=== PATIENT | female | born 2000 | race Caucasian/White ===

== ENCOUNTER 2025-04-23 14:30 | Emergency (ER) | payer OTHER, SELFPAY ==
[2025-04-23 14:34] VITALS: BP 116/83; PULSE 97; RESP 18; TEMP 36.2; O2SAT 98; BMI 29.0
--- NOTE | 2025-04-23 15:05 | US_ITS ---
PROCEDURE: TRANSVAGINAL W/PREG US 04/23/2025 REASON FOR EXAM: AND BLEEDING TECHNIQUE: Procedure Code: USTVAGP Modality: US Procedure: TRANSVAGINAL W/PREG US FINDINGS Uterus measures 6.7 x 6 x 3.7 Cm. No uterine fibroids are noted. Cervix is closed. Endometrial stripe measures 7 mm. Right ovary measures 3.5 x 3.2 x 2.6 Cm and left ovary measures 3.4 x 3 x 1.7 Cm. There is normal bilateral symmetrical blood flow within bilateral ovaries. 1.6 x 1.6 x 1.2 cm right ovarian complex cyst noted. Minimal free fluid within the cul-de-sac. US/Transvaginal w/Preg US IMPRESSION: 1.6 x 1.6 x 1.2 cm right ovarian complex cyst. Minimal free fluid. Otherwise no acute process. Reading Location: [facility]
--- NOTE | 2025-04-23 15:06 | ED.VIS.FEGU ---
HPI HPI - Female History of Present Illness Chief Complaint: Vag Bld, Preg Detail of Chief Complaint: Vaginal bleeding Informant: patient Narrative Narrative: Patient presents to the emergency department with vaginal bleeding that started 1 or 2 hours ago. She describes some mild suprapubic discomfort. She think she is about 4 weeks . She is . Last menstrual period was March 24. Patient visiting from out of town and is from [place]. No significant medical history otherwise PFSH PFS Medical History (Updated 04/23/25 @ 17:[address] Nestor Whalen, DO) Home Medications ?Medication ?Instructions ?Recorded ?Last Taken ?Type tirzepatide (weight loss) 2.5 2.5 mg subcut QWEEK 04/23/25 04/15/25 History mg/0.5 mL subcutaneous pen injector (Zepbound) Allergy/AdvReac Type Severity Reaction Status Date / Time bismuth subsalicylate (From Allergy Hives Verified 04/23/25 14:35 Pepto-Bismol) Family History (Updated 04/23/25 @ 14:59 by Sarah Frye) Mother Breast cancer Surgical History (Updated 04/23/25 @ 14:59 by Sarah Frye) History of cholecystectomy Social History (Updated 04/23/25 @ 14:59 by Sarah Frye) household members: spouse current occupational status: employed Smoking Status: Never smoker ROS ROS ED Review of Systems ROS Unobtainable: other Constitutional Constitutional ED: Reports lethargy; Denies chills, fever(s), sweats or weight loss Eyes Eyes: Denies blurry vision, change in vision or diplopia ENT ENT ED: Denies rhinorrhea or sore throat Cardiovascular Cardiovascular: Denies chest pain, orthopnea or racing heartbeat Respiratory/Chest Respiratory/Chest: Denies cough, dyspnea, dyspnea on exertion, orthopnea or sputum Gastrointestinal Gastrointestinal: Reports abdominal pain; Denies diarrhea, nausea or vomiting Genitourinary Genitourinary ED: Reports other Details: Vaginal bleeding ; Denies dysuria, hematuria or urinary frequency Musculoskeletal Musculoskeletal: Denies arthralgias, back pain, myalgias or neck pain Integumentary Denies abscess, Abrasions or rash Neurologic Neurologic: Denies headache(s) or weakness Psychiatric Psychiatric: Denies anxiety, depression or suicidal thoughts Endocrine Endocrinology: Denies polydipsia, polyphagia or polyuria Hematologic/Lymphatic Hematologic/Lymphatic: Denies easy bleeding, easy bruising or lymphadenopathy Allergic/Immunologic Allergic/Immunologic ED: Denies mouth swelling, tongue swelling or urticaria EXAM Physical Exam Const Vital Signs: 04/23/25 14:34 04/23/25 16:58 Temperature 97.2 F L Temperature Source Temporal Pulse Rate 97 76 Respiratory Rate 18 16 Blood Pressure 116/83 H 115/73 Blood Pressure Mean 94 87 Pulse Ox 98 100 Oxygen Delivery Method Room Air Room Air Positive well nourished and well developed General Appearance ED: well developed and NAD HEENT Reports TM's clear and moist mucous membranes normocephalic and atraumatic; Negative for trauma or tenderness Tympanic Membrane ED: Yes TM's clear Eyes PERRL and EOMs intact bilaterally General Eye ED: Negative for pale conjunctiva or scleral icterus Neck no lymphadenopathy, supple and no JVD General: Negative for tenderness Chest Wall inspection of chest normal and palpation of chest normal Chest: Negative for tenderness Resp normal respiratory effort and clear to auscultation bilaterally Effort and Inspection: Negative for respiratory distress or pain with movement Auscultation: Negative for rhonchi, wheezes or diminished lung sounds Cardio regular rate, regular rhythm, S1 normal heart sound, S2 normal heart sound and no murmurs Peripheral Pulses: pulses 2+ throughout GI normal to inspection, nondistended, normoactive bowel sounds, soft to palpation, non-tender, non-distended and no masses Back/Spine no CVA tenderness and no thoracic nor lumbar tenderness Extremity normal to inspection General Extremety ED: Negative for edema General Extremity: Negative for edema Neuro oriented x3, CN's II-XII intact bilaterally, no sensory deficits noted and gait normal Sensorium / Orientation: awake, alert, oriented to person, oriented to place and oriented to time Motor Exam: strength 5/5 throughout and strength abnormal Psych mental status grossly normal Skin no rashes or lesions noted and no wounds MDM MDM MDM Narrative Medical decision making narrative: Patient presents with vaginal bleeding. She tells me she had a quant yesterday [place] that was 14. She thought she was about 4 weeks . She is here visiting from [place]. Not having significant pain just and minimal cramping. She is . Patient has history of polycystic ovarian syndrome. IV established. CBC with differential count 5.1 with hemoglobin 12.3 and platelet count of 209. Quant was 20 today. Blood type was a positive and urinalysis unremarkable. Pelvic ultrasound obtained showed complex cyst in the right ovary measuring 1.6 x 1.6 x 1.2 cm. She had minimal free fluid otherwise no acute findings. At this point with quant being so low and elevating from yesterday is possible she may be having a early . Discussed threatened in the first trimester. She is going back to [place] in 3 days. She understands she needs repeat quant and repeat ultrasound to track the . Patient advised to return if persistent heavy bleeding more than 1 pad an hour for 4 consecutive hours or severe abdominal pain or condition should worsen anyway. Lab Data Attestation: I reviewed the patient's lab results. Labs: Laboratory Results - last 24 hr 04/23/25 04/23/25 15:46 16:19 WBC 5.1 RBC 4.32 Hgb 12.3 Hct 36.1 L MCV 83.6 MCH 28.5 MCHC 34.1 RDW Std Deviation 38.6 RDW Coeff of [place] 12.7 Plt Count 209 MPV 10.1 Immature Gran % (Auto) 0.200 Neut % (Auto) 61.5 Lymph % (Auto) 32.0 [place] % (Auto) 4.5 Eos % (Auto) 1.2 Baso % (Auto) 0.6 Absolute Neuts (auto) 3.2 Absolute Lymphs (auto) 1.64 Nucleated RBC % 0 HCG, Quant 20 H Urine Color Yellow Urine Clarity Sl. Cloudy Urine pH 7.0 Ur Specific [place] 1.010 Urine Protein Negative Urine Glucose (UA) Normal Urine Ketones Negative Urine Occult Blood 250 H Urine Nitrite Negative Urine Bilirubin Negative Urine Urobilinogen Normal Ur Leukocyte Esterase Negative Urine RBC 25-50 SEEN Urine WBC 0 SEEN Ur Squamous Epith Cells 0-5 SEEN Urine Bacteria 0 SEEN Urine Mucus 0 SEEN Blood Type A POSITIVE Radiography Diagnostic Testing: Clinical Impression(s) from Imaging Studies Obstetrics Ultrasound 04/23/25 15:05 IMPRESSION: 1.6 x 1.6 x 1.2 cm right ovarian complex cyst. Minimal free fluid. Otherwise no acute process. Reading Location: [facility] Discharge Plan Triage Chief Complaint: Vag Bld, Preg ED Provider: Nestor Whalen Dx/Rx/DC Orders Clinical Impression: First trimester , , threatened Instructions: Vaginal Bleeding During , Miscarriage Threatened Prescriptions: No Action Zepbound 2.5 mg/0.5 mL pen injector 2.5 mg subcut QWEEK Rx Instructions: for 4 weeks Primary Care Provider: Care Physician,No Primary Referrals: Care Physician,No Primary [Primary Care Provider, Medical] Activity Restrictions/Additional Instructions: You will need a repeat quant within 2 to 3 days and repeat ultrasound within the next week. Print Language: Urdu Disposition Disposition: Home, Self Care
[2025-04-23 15:53] LABS: Hematocrit 36.1 % (37-47); Hemoglobin 12.3 g/dL (12.0-15.0); Immature Granulocytes Count 0.010 X10^3/uL (0.0-0.0); Mean Corp Hgb Conc 34.1 g/dL (32-36); Mean Corpuscular Volume 83.6 fL (81-99); Mean Platelet Vol. 10.1 fl (6.2-12.0); NRBC Flagged by Analyzer 0 % (0-5); Platelet Count 209 K/mm3 (150-450); RBC Distribution Width CV 12.7 % (11.6-14.6); RBC Distribution Width SD 38.6 fl (35.1-43.9); Red Blood Count 4.32 M/mm3 (4.2-5.4); White Blood Count 5.1 K/mm3 (4.4-11.0)
[2025-04-23 16:25] LABS: Mucous, Urine 0 SEEN /hpf (<or=2+)
[2025-04-23 16:26] LABS: Color, Urine Yellow (Yellow); Glucose, Dipstick Normal (Normal); Ketone-Dipstick Negative (Negative); Leukocyte Esterase-Dipstick Negative /ul (Negative); Nitrite-Dipstick Negative (Negative); Occult Blood-Urine 250 /ul (Negative); Protein-Dipstick Negative (Negative); Specific Gravity, Urine 1.010 (1.002-1.030); Urine Bilirubin Dipstick Negative (Negative)
[2025-04-23 16:31] LABS: Red Blood Cells-Urine 25-50 SEEN /hpf (0-5)
[2025-04-23 16:32] LABS: Squamous Epithelial Cells - UA 0-5 SEEN /hpf (5-10)
[2025-04-23 16:57] LABS: hCG Titer Quant., Serum 20 mIU/mL (<9 non-preg)
[2025-04-23 16:58] VITALS: BP 115/73; PULSE 76; RESP 16; O2SAT 100
[2025-04-23 18:00] VITALS: BP 102/70; PULSE 77; RESP 16; TEMP 36.2; O2SAT 100
== END 2025-04-23 18:01 | disposition home or self-care (01) ==
PROVIDERS: Emergency Provider Emergency Medicine; Visit Provider Emergency Medicine
DX: O20.0 Threatened abortion (principal); Z3A.01 Less than 8 weeks gestation of pregnancy; N83.201 Unspecified ovarian cyst, right side; Z79.85 Long-term (current) use of injectable non-insulin antidiabetic drugs; O99.891 Other specified diseases and conditions complicating pregnancy
CPT/HCPCS: 76817; 81001; 84702; 85025; 86900; 86901; 99283; A4216